=== PATIENT | male | born 1960 | race Caucasian/White ===

== ENCOUNTER 2018-02-15 03:46 | Emergency (ER) | payer BC, OTHER ==
[2018-02-15] MEDS ORDERED: ONDANSETRON 4 MG/2 ML VIAL ONE ×2 (04:21→06:22)
[2018-02-15] MEDS ORDERED: MORPHINE 4 MG/ML SYR ONE (04:21)
[2018-02-15] MEDS ORDERED: NA CHLORIDE 0.9% 1,000 ML ONE (04:21)
[2018-02-15 04:30] LABS: Absolute Lymphocytes (CBC) 3.1 K/uL (0.7-4.9); Absolute Monocytes 0.8 K/uL (0.1-1.3); Absolute Neutrophil 6.4 K/uL (1.8-8.0); Basophils % 0.9 % (0-1.3); Eosinophils % 6.1 % (0-4.4); Hematocrit 45.2 % (39.6-49.0); MCH 29.8 pg (27.0-35.0); MCV 88.3 fL (80-100); MPV 8.7 fL (7.6-11.3); Monocytes % 7.5 % (3.3-12.3); RBC Red Blood Cell Count 5.12 M/uL (4.33-5.43)
[2018-02-15] MEDS ORDERED: MEPERIDINE HCL 50 MG/ML AMP ONE ×2 (04:49→06:22)
[2018-02-15 04:51] LABS: Potassium 3.3 mEq/L (3.6-5.0)
[2018-02-15 04:58] LABS: Albumin 3.8 g/dL (3.2-5.5); Bilirubin Direct 0.1 mg/dL (0-0.2); Bilirubin Total 0.5 mg/dL (0.3-1.2); Protein, Total 7.6 g/dL (6.0-8.3)
[2018-02-15 05:05] LABS: Urine Blood 3+ (NEG); Urine Glucose NEGATIVE (NEG); Urine Protein NEGATIVE (NEG)
[2018-02-15] MEDS ORDERED: MAGNESIUM SULFATE 1 gm IVPB 1 GM/100 ML BAG IV ONE (05:14)
[2018-02-15] MEDS ORDERED: TAMSULOSIN 0.4 MG SR CAP ONE (05:14)
[2018-02-15 05:28] LABS: Urine Bacteria <20 /HPF (NONE SEEN); Urine Culture Reflex Order NOT NEEDED; Urine Mucus LIGHT /HPF (NONE SEEN)
[2018-02-15] MEDS ORDERED: KETOROLAC 30 MG/ML INJ ONE (07:04)
--- NOTE | 2018-02-15 08:52 | ER ---
Nurse's Notes [facility] Name: Kee Hernandez Age: 57 yrs Sex: Male : 1960 Arrival Date: 02/15/2018 Time: 03:47 Bed 8 Private MD: Ubaldo Shirley B Diagnosis: Kidney stones Presentation: 02/15 03:58 Presenting complaint: Patient states: I have a sharp pain in my kidneys, more on the tl2 right side and I have a pressure in my lower abdomen. Pt denies pain when urinating but states he can only urinate a small amount each time. Positive for N/V. Transition of care: patient was not received from another setting of care. Onset of symptoms was February 15, 2018 at 03:00. Risk Assessment: Do you want to hurt yourself or someone else? Patient reports no desire to harm self or others. Initial Sepsis Screen: Does the patient meet any 2 criteria? No. Patient's initial sepsis screen is negative. Does the patient have a suspected source of infection? No. Patient's initial sepsis screen is negative. Care prior to arrival: None. 03:58 Method Of Arrival: Ambulatory tl2 03:58 Acuity: MARU 3 tl2 Triage Assessment: 04:00 General: Appears in no apparent distress. uncomfortable, Behavior is calm, cooperative, tl2 appropriate for age. Pain: Complains of pain in right flank, suprapubic area Pain currently is 10 out of 10 on a pain scale. Quality of pain is described as pressure, sharp. Neuro: Level of Consciousness is awake, alert, obeys commands, Oriented to person, place, time, situation. Cardiovascular: Denies chest pain. Respiratory: Airway is patent Respiratory effort is even, unlabored, Respiratory pattern is regular, symmetrical. GI: Reports nausea, vomiting. : Reports inability to void, pain in right in suprapubic area flank(s), since 0300. Derm: Skin is pink, warm \\T\\ dry. Historical: - Allergies: 04:00 No Known Allergies; tl2 - Home Meds: 04:00 losartan 50 mg Oral tab [Active]; pravastatin 40 mg Oral tab 1 tab once daily [Active]; tl2 - PMHx: 04:00 Hypertension; High Cholesterol; tl2 - PSHx: 04:00 Cholecystectomy; tl2 - Immunization history:: Adult Immunizations up to date. - Social history:: Smoking status: Patient/guardian denies using tobacco. - Ebola Screening: : No symptoms or risks identified at this time. - Family history:: not pertinent. - Hospitalizations: : No recent hospitalization is reported. Screenin:06 Abuse screen: Denies threats or abuse. Nutritional screening: No deficits noted. tl2 Tuberculosis screening: No symptoms or risk factors identified. Fall Risk None identified. Assessment: 04:00 General: see triage assessment. tl2 04:00 Reassessment: pt continuing to c/o MD swathi notified, new order see NOV. tl2 05:00 Reassessment: Patient appears in no apparent distress at this time. Patient and/or tl2 family updated on plan of care and expected duration. Pain level reassessed. Patient is alert, oriented x 3, equal unlabored respirations, skin warm/dry/pink. Pt states pain has decreased some but is still bothering him. 06:30 Reassessment: Patient appears in no apparent distress at this time. Patient and/or tl2 family updated on plan of care and expected duration. Pain level reassessed. Patient is alert, oriented x 3, equal unlabored respirations, skin warm/dry/pink. Pt c/o MD swathi at bedside, new orders see NOV. 06:43 Reassessment: Pt resting comfortably after demerol administration. tl2 07:00 Reassessment: Pt resting with eyes closed, respirations even and unlabored, skin is aa5 pink/warm/dry. Pt awakened to verbal stimuli. Pt states "the pain is a little better". Pt rates pain a 8 out of 10 on a pain scale. . 07:00 Reassessment: Patient and/or family updated on plan of care and expected duration. Pain aa5 level reassessed. 07:01 Reassessment: Dr. Sneed at bedside . aa5 07:56 Reassessment: Ambulated pt approximately 250 feet, steady gate, pt states "I feel a jl7 little groggy but I'm ok.". 08:50 Reassessment: Patient is alert, oriented x 3, equal unlabored respirations, skin aa5 warm/dry/pink. Patient states feeling better. Vital Signs: 04:00 BP 167 / 108; Pulse 64; Resp 20; Temp 98.8(O); Pulse Ox 95% on R/A; Weight 140.61 kg; tl2 Height 5 ft. 11 in. (180.34 cm); Pain 10/10; 04:52 BP 178 / 115; Pulse 75; Resp 20; Pulse Ox 100% on R/A; tl2 06:40 BP 176 / 117; Pulse 66; Resp 20; Pulse Ox 95% on R/A; tl2 07:00 BP 182 / 98; Pulse 58; Resp 16 S; Pulse Ox 96% on R/A; Pain 8/10; aa5 07:05 Pulse Ox 86% on R/A; aa5 07:07 Pulse Ox 98% on 4 lpm NC; aa5 07:56 BP 142 / 86; Pulse 70; Resp 16 S; Pulse Ox 99% on R/A; Pain 1/10; jl7 08:50 BP 134 / 75; Pulse 65; Resp 16 S; Pulse Ox 97% on R/A; Pain 5/10; aa5 04:00 Body Mass Index 43.24 (140.61 kg, 180.34 cm) tl2 07:05 Pt's O2 sat decreases when pt is sleeping and increases to 96% when awake. Provider aa5 notified. ED Course: 03:47 Patient arrived in ED. ds1 03:47 Ubaldo Shirley MD is Private Physician. ds1 03:53 Dipak Sneed MD is Attending Physician. rn 03:58 Isaura Almanzar RN is Primary Nurse. tl2 03:59 Triage completed. tl2 04:00 Arm band placed on right wrist. tl2 04:06 Patient has correct armband on for positive identification. Bed in low position. Call tl2 light in reach. Side rails up X 1. Adult w/ patient. 04:15 Inserted saline lock: 20 gauge in right antecubital area, using aseptic technique. tl2 Blood collected. 04:40 CT completed. Patient moved to CT via wheelchair. Patient moved back from CT. cw1 04:41 CT Stone Protocol In Process Unspecified. EDMS 07:00 Report received from CARLY Delarosa. aa5 07:19 Attending Physician role handed off by Dipak Sneed MD kdr 07:19 Byron Guzman MD is Attending Physician. kdr 08:50 Byron Guzman MD is Referral Physician. kdr 08:50 No provider procedures requiring assistance completed. aa5 08:50 IV discontinued, intact, bleeding controlled, No redness/swelling at site. Pressure aa5 dressing applied. Administered Medications: 04:25 Drug: Zofran 4 mg Route: IVP; Site: right antecubital; tl2 05:20 Follow up: Response: No adverse reaction tl2 04:25 Drug: morphine 4 mg Route: IVP; Site: right antecubital; tl2 04:30 Follow up: Response: No adverse reaction; Pain is unchanged, physician notified tl2 04:26 Drug: NS 0.9% 1000 ml Route: IV; Rate: 1000 ml; Site: right antecubital; tl2 04:50 Drug: Demerol 50 mg Route: IVP; Site: right antecubital; tl2 05:10 Follow up: Response: No adverse reaction; Pain is decreased tl2 05:20 Drug: Flomax 0.4 mg Route: PO; tl2 06:31 Follow up: Response: No adverse reaction tl2 05:20 Drug: Magnesium Sulfate 1 grams Route: IVPB; Infused Over: 1 hrs; Site: right tl2 antecubital; 06:31 Follow up: IV Status: Completed infusion tl2 06:31 Drug: Demerol 50 mg Route: IVP; Site: right antecubital; tl2 07:00 Follow up: Response: No adverse reaction; Pain is decreased aa5 06:31 Drug: Zofran 2 mg Route: IVP; Site: right antecubital; tl2 07:00 Follow up: Response: No adverse reaction aa5 07:05 Drug: TORadol 30 mg Route: IVP; Site: right antecubital; aa5 07:30 Follow up: Response: No adverse reaction; Pain is decreased aa5 Output: 07:14 Urine: 400ml (Voided); Total: 400ml. aa5 Outcome: 08:51 Discharge ordered by . kdr 09:00 Discharged to home ambulatory, with family. aa5 09:00 Condition: improved 09:00 Discharge instructions given to patient, Instructed on discharge instructions, follow up and referral plans. medication usage, Demonstrated understanding of instructions, follow-up care, medications, Prescriptions given X 4. 09:06 Patient left the ED. aa5 Signatures: Dispatcher [employer] EDKY Byron Guzman MD MD kdr Sanford, Demi ds1 Dipak Sneed MD MD rn Calderon, Audri RN RN aa5 Emmie Rosado cw1 Isaura Almanzar RN RN tl2 Jcarlos Shearer RN RN jl7 Corrections: (The following items were deleted from the chart) 04:52 04:51 General: see triage assessment. tl2 tl2 04:59 04:52 Pulse 75bpm; Resp 20bpm; Pulse Ox 100% RA; tl2 tl2 09:07 07:05 Pulse Ox 86% RA; Pt's O2 sat decreases when pt is sleeping and increases to 96% aa5 when awake. ; aa5
--- NOTE | 2018-02-15 08:52 | EDPHYS ---
Physician Documentation [facility] Name: Kee Hernandez Age: 57 yrs Sex: Male : 1960 Arrival Date: 02/15/2018 Time: 03:47 Bed 8 Private MD: Ubaldo Shirley B ED Physician Byron Guzman HPI: 02/15 06:42 This 57 yrs old Male presents to ER via Ambulatory with complaints of Low rn Back Pain, Nausea/Vomiting. 06:42 The patient presents with pain that is acute. The symptoms are located in the low back. rn The pain radiates to the abdomen. Onset: The symptoms/episode began/occurred just prior to arrival. Severity of symptoms: At their worst the symptoms were severe, in the emergency department the symptoms are unchanged. The patient has not experienced similar symptoms in the past. The patient has not recently seen a physician. Historical: - Allergies: 04:00 No Known Allergies; tl2 - Home Meds: 04:00 losartan 50 mg Oral tab [Active]; pravastatin 40 mg Oral tab 1 tab once daily [Active]; tl2 - PMHx: 04:00 Hypertension; High Cholesterol; tl2 - PSHx: 04:00 Cholecystectomy; tl2 - Immunization history:: Adult Immunizations up to date. - Social history:: Smoking status: Patient/guardian denies using tobacco. - Ebola Screening: : No symptoms or risks identified at this time. - Family history:: not pertinent. - Hospitalizations: : No recent hospitalization is reported. ROS: 06:42 Constitutional: Negative for fever, chills, and weight loss, Eyes: Negative for injury, rn pain, redness, and discharge, Cardiovascular: Negative for chest pain, palpitations, and edema, Respiratory: Negative for shortness of breath, cough, wheezing, and pleuritic chest pain, Abdomen/GI: Negative for diarrhea, and constipation Back: Negative for injury MS/Extremity: Negative for injury and deformity, Skin: Negative for injury, rash, and discoloration, Neuro: Negative for headache, weakness, numbness, tingling, and seizure. Exam: 06:42 Constitutional: This is a well developed, well nourished patient who is awake, alert, rn appears uncomfortable Head/Face: Normocephalic, atraumatic. Abdomen/GI: Soft, non-tender, with normal bowel sounds. No distension or tympany. No guarding or rebound. No evidence of tenderness throughout. Back: No spinal tenderness. No costovertebral tenderness. Full range of motion. MS/ Extremity: Pulses equal, no cyanosis. Neurovascular intact. Full, normal range of motion. Equal circumference. Neuro: Awake and alert, GCS 15, oriented to person, place, time, and situation. Cranial nerves II-XII grossly intact. Motor strength 5/5 in all extremities. Sensory grossly intact. Vital Signs: 04:00 BP 167 / 108; Pulse 64; Resp 20; Temp 98.8(O); Pulse Ox 95% on R/A; Weight 140.61 kg; tl2 Height 5 ft. 11 in. (180.34 cm); Pain 10/10; 04:52 BP 178 / 115; Pulse 75; Resp 20; Pulse Ox 100% on R/A; tl2 06:40 BP 176 / 117; Pulse 66; Resp 20; Pulse Ox 95% on R/A; tl2 07:00 BP 182 / 98; Pulse 58; Resp 16 S; Pulse Ox 96% on R/A; Pain 8/10; aa5 07:05 Pulse Ox 86% on R/A; aa5 07:07 Pulse Ox 98% on 4 lpm NC; aa5 07:56 BP 142 / 86; Pulse 70; Resp 16 S; Pulse Ox 99% on R/A; Pain 1/10; jl7 08:50 BP 134 / 75; Pulse 65; Resp 16 S; Pulse Ox 97% on R/A; Pain 5/10; aa5 04:00 Body Mass Index 43.24 (140.61 kg, 180.34 cm) tl2 07:05 Pt's O2 sat decreases when pt is sleeping and increases to 96% when awake. Provider aa5 notified. MDM: 03:53 Patient medically screened. rn 16:58 Data reviewed: vital signs, nurses notes, lab test result(s), radiologic studies. kdr Counseling: I had a detailed discussion with the patient and/or guardian regarding: the historical points, exam findings, and any diagnostic results supporting the discharge/admit diagnosis, lab results, radiology results, the need for outpatient follow up. 02/15 04:13 Order name: Basic Metabolic Panel; Complete Time: 04:59 rn 02/15 04:13 Order name: CBC with Diff; Complete Time: 04:59 rn 02/15 04:13 Order name: Creatinine for Radiology; Complete Time: 04:59 rn 02/15 04:13 Order name: Hepatic Function; Complete Time: 04:59 rn 02/15 04:13 Order name: Lipase; Complete Time: 04:59 rn 02/15 04:13 Order name: Urine Microscopic Only; Complete Time: 06:17 rn 02/15 04:13 Order name: CT Stone Protocol; Complete Time: 09:03 rn 02/15 04:53 Order name: Urine Dipstick--Ancillary (enter results); Complete Time: 06:17 eb 02/15 04:13 Order name: IV Saline Lock; Complete Time: 04:18 rn 02/15 04:13 Order name: Labs collected and sent; Complete Time: 04:18 rn 02/15 04:13 Order name: Urine Dipstick-Ancillary (obtain specimen); Complete Time: 04:18 rn Administered Medications: 04:25 Drug: Zofran 4 mg Route: IVP; Site: right antecubital; tl2 05:20 Follow up: Response: No adverse reaction tl2 04:25 Drug: morphine 4 mg Route: IVP; Site: right antecubital; tl2 04:30 Follow up: Response: No adverse reaction; Pain is unchanged, physician notified tl2 04:26 Drug: NS 0.9% 1000 ml Route: IV; Rate: 1000 ml; Site: right antecubital; tl2 04:50 Drug: Demerol 50 mg Route: IVP; Site: right antecubital; tl2 05:10 Follow up: Response: No adverse reaction; Pain is decreased tl2 05:20 Drug: Flomax 0.4 mg Route: PO; tl2 06:31 Follow up: Response: No adverse reaction tl2 05:20 Drug: Magnesium Sulfate 1 grams Route: IVPB; Infused Over: 1 hrs; Site: right tl2 antecubital; 06:31 Follow up: IV Status: Completed infusion tl2 06:31 Drug: Demerol 50 mg Route: IVP; Site: right antecubital; tl2 07:00 Follow up: Response: No adverse reaction; Pain is decreased aa5 06:31 Drug: Zofran 2 mg Route: IVP; Site: right antecubital; tl2 07:00 Follow up: Response: No adverse reaction aa5 07:05 Drug: TORadol 30 mg Route: IVP; Site: right antecubital; aa5 07:30 Follow up: Response: No adverse reaction; Pain is decreased aa5 Disposition: 02/15/18 08:51 Discharged to Home. Impression: Kidney stones. - Condition is Stable. - Discharge Instructions: Kidney Stones, [id number]. - Prescriptions for Tylenol- Codeine #3 300-30 mg Oral Tablet - take 2 tablets by ORAL route every 6 hours As needed; 12 tablet. Zofran 4 mg Oral Tablet - take 1 tablet by ORAL route every 12 hours As needed; 6 tablet. Flomax 0.4 mg Oral Capsule, Sust. Release 24 hr - take 1 capsule by ORAL route once daily 1/2 hour following the same meal each day; 15 capsule. Bactrim DS 800- 160 mg Oral Tablet - take 1 tablet by ORAL route every 12 hours for 3 days; 6 tablet. - Medication Reconciliation Form, Thank You Letter, Prescription Opioid Use form. - Follow up: Byron Guzman MD; When: 2 - 3 days; Reason: If symptoms return, Further diagnostic work-up, Recheck today's complaints, Continuance of care, Re-evaluation by your physician. - Problem is new. - Symptoms have improved. Signatures: Dispatcher [employer] EDMS Byron Guzman MD MD kdr Dipak Sneed MD MD rn Calderon, Audri, RN RN aa5 Isaura Almanzar RN RN tl2 Corrections: (The following items were deleted from the chart) 09:06 08:51 02/15/2018 08:51 Discharged to Home. Impression: Kidney stones. Condition is aa5 Stable. Forms are Medication Reconciliation Form, Thank You Letter, Antibiotic Education, Prescription Opioid Use. Follow up: Dr. Byron Guzman; When: 2 - 3 days; Reason: If symptoms return, Further diagnostic work-up, Recheck today's complaints, Continuance of care, Re-evaluation by your physician. Problem is new. Symptoms have improved. kdr
--- NOTE | 2018-02-15 08:56 | RAD REPORT ---
EXAM DESCRIPTION: CT - Stone Protocol - 02/15/2018 6:18 am CLINICAL HISTORY: Abdominal pain. Right flank pain COMPARISON: None. TECHNIQUE: Computed axial tomography of the abdomen pelvis was obtained without oral or IV contrast. Lack of IV and oral contrast limits evaluation of solid organs, bowel, and vessels. Coronal reformat gordon images were obtained and reviewed. A preliminary report was generated by [employer] and reviewed prior to this dictation All CT scans are performed using dose optimization technique as appropriate and may include automated exposure control or mA/KV adjustment according to patient size. FINDINGS: Punctate right renal calculus is present. Mild right hydronephrosis is seen. 2 millimeter calculus is present within the distal right ureter. A left renal calculus is not seen. The liver, spleen, pancreas and adrenals appear grossly normal There is no evidence of diverticulitis. The appendix appears normal Bilateral inguinal hernias contain fat IMPRESSION: 2 millimeter calculus within the distal right ureter resulting in mild right hydronephro sis
[2018-02-15 09:11] VITALS: TEMP 98.8
[2018-02-15 09:19] VITALS: BP 134/75; O2SAT 97
== END 2018-02-15 09:06 | disposition home or self-care (01) ==
LOC: ER 03:46
DX: N20.0 Calculus of kidney (principal); I10 Essential (primary) hypertension; E78.00 Pure hypercholesterolemia, unspecified
CPT/HCPCS: 36415; 74176; 76377; 80048; 80076; 81003; 81015; 83690; 85025; 96365; 96375; 99284; J2175; J2405; J3475; J7030

== ENCOUNTER 2019-02-03 23:18 | Observation (INO) | payer OTHER ==
[2019-02-03 23:53] LABS: Absolute Lymphocytes (CBC) 2.4 K/uL (0.7-4.9); Absolute Monocytes 0.7 K/uL (0.1-1.3); Absolute Neutrophil 5.9 K/uL (1.8-8.0); Basophils % 0.6 % (0-1.3); Eosinophils % 3.3 % (0-4.4); Hematocrit 45.2 % (39.6-49.0); Lymphocytes % 25.3 % (15.3-44.8); MPV 8.4 fL (7.6-11.3); Monocytes % 7.9 % (3.3-12.3); RBC Red Blood Cell Count 5.03 M/uL (4.33-5.43)
[2019-02-03 23:56] LABS: Protime INR 0.98
[2019-02-04] MEDS ORDERED: ASPIRIN 81 MG CHEWABLE TABLET ONE (00:15)
[2019-02-04 00:17] LABS: ALT/SGPT 30 U/L (12-78); AST/SGOT 20 U/L (15-37); Albumin 3.5 g/dL (3.4-5.0); Alkaline Phosphatase 98 U/L (45-117); BUN Blood Urea Nitrogen 16 mg/dL (7-18); Bicarbonate 25 mmol/L (21-32); Bilirubin Direct 0.1 mg/dL (0-0.2); Bilirubin Total 0.4 mg/dL (0.2-1.0); Glucose Level 101 mg/dL (74-106); Magnesium 2.4 mg/dL (1.8-2.4); NT PRO-BNP 53 pg/mL (<125); Potassium 3.7 mmol/L (3.5-5.1); Protein, Total 7.8 g/dL (6.4-8.2); Sodium Level 142 mmol/L (136-145); Troponin (Emerg Dept Use Only) < 0.02 ng/mL (0.0-0.045)
--- NOTE | 2019-02-04 03:53 | EDPHYS ---
Physician Documentation [facility] Name: Kee Hernandez Age: 58 yrs Sex: Male : 1960 Arrival Date: 02/03/2019 Time: 23:23 Bed 18 Private MD: Ubaldo Shirley B ED Physician [place] Estrada HPI: 02/04 02:12 This 58 yrs old Male presents to ER via Wheelchair with complaints of Chest tw4 Pain. 02:12 The patient or guardian reports chest pain that is located primarily in the anterior tw4 chest wall, left. Onset: this morning, today. The pain does not radiate. Associated signs and symptoms: The patient has no apparent associated signs or symptoms. The chest pain is described as a heaviness. Duration: The patient or guardian reports a single episode. Modifying factors: The symptoms are alleviated by nothing. the symptoms are aggravated by nothing. Severity of pain: At its worst the pain was moderate in the emergency department the pain is unchanged. The patient has not experienced similar symptoms in the past. Historical: - Allergies: 02/03 23:34 No Known Allergies; jb4 - Home Meds: 23:34 losartan 50 mg Oral tab [Active]; pravastatin 40 mg Oral tab 1 tab once daily [Active]; jb4 - PMHx: 23:34 High Cholesterol; Hypertension; jb4 - PSHx: 23:34 Cholecystectomy; abdominal; jb4 - Immunization history:: Adult Immunizations up to date. - Social history:: Smoking status: Patient/guardian denies using tobacco, Patient/guardian denies using alcohol. - Ebola Screening: : No symptoms or risks identified at this time. ROS: 02/04 02:12 Constitutional: Negative for fever, chills, and weight loss, Respiratory: Negative for tw4 shortness of breath, cough, wheezing, and pleuritic chest pain, Abdomen/GI: Negative for abdominal pain, nausea, vomiting, diarrhea, and constipation, Back: Negative for injury and pain, MS/Extremity: Negative for injury and deformity, Skin: Negative for injury, rash, and discoloration, Neuro: Negative for headache, weakness, numbness, tingling, and seizure. Cardiovascular: Positive for chest pain, Negative for edema, orthopnea, palpitations, paroxysmal nocturnal dyspnea. Exam: 02:12 Constitutional: This is a well developed, well nourished patient who is awake, alert, tw4 and in no acute distress. Head/Face: Normocephalic, atraumatic. Chest/axilla: Normal chest wall appearance and motion. Nontender with no deformity. No lesions are appreciated. Cardiovascular: Regular rate and rhythm with a normal S1 and S2. No gallops, murmurs, or rubs. Normal PMI, no JVD. No pulse deficits. Respiratory: Lungs have equal breath sounds bilaterally, clear to auscultation and percussion. No rales, rhonchi or wheezes noted. No increased work of breathing, no retractions or nasal flaring. Abdomen/GI: Soft, non-tender, with normal bowel sounds. No distension or tympany. No guarding or rebound. No evidence of tenderness throughout. MS/ Extremity: Pulses equal, no cyanosis. Neurovascular intact. Full, normal range of motion. Neuro: Awake and alert, GCS 15, oriented to person, place, time, and situation. Cranial nerves II-XII grossly intact. Motor strength 5/5 in all extremities. Sensory grossly intact. Cerebellar exam normal. Normal gait. Vital Signs: 02/03 23:34 BP 154 / 94; Pulse 80; Resp 16; Temp 98.3(O); Pulse Ox 98% on R/A; Weight 145.15 kg jb4 (R); Height 5 ft. 11 in. (180.34 cm) (R); Pain 10; 02/04 00:30 BP 134 / 81; Pulse 74; Resp 16; Pulse Ox 98% on R/A; jb4 01:30 BP 131 / 85; Pulse 67; Resp 16; Pulse Ox 97% on R/A; jb4 02:45 BP 125 / 84; Pulse 62; Resp 16; Pulse Ox 100% on R/A; jb4 03:45 BP 129 / 82; Pulse 63; Resp 16; Pulse Ox 100% on R/A; jb4 04:30 BP 131 / 79; Pulse 60; Resp 18; Pulse Ox 98% on R/A; jb4 05:30 BP 118 / 83; Pulse 66; Resp 20; Temp 98.1(O); Pulse Ox 98% on R/A; jb4 06:18 BP 126 / 88; Pulse 60; Resp 16; Pulse Ox 99% on R/A; 4 02/03 23:34 Body Mass Index 44.63 (145.15 kg, 180.34 cm) 4 MDM: 02/03 23:37 Patient medically screened. 02/04 05:43 Differential diagnosis: abnormal EKG, acute myocardial infarction, coronary artery tw4 disease chest wall pain, cholecystitis, Cholelithiasis pulmonary embolus, thoracic aortic disection. HEART Score: History: Moderately Suspicious (1), ECG: Normal (0), Age: > 45 and < 65 years (1), Risk Factors: 1 or 2 risk factors (1), Troponin: < or = 1 x Normal Limit (0). Data reviewed: vital signs, nurses notes. Data interpreted: Pulse oximetry: Interpretation: normal. Counseling: I had a detailed discussion with the patient and/or guardian regarding: the historical points, exam findings, and any diagnostic results supporting the discharge/admit diagnosis. Medication response: Nitro x 3 partially relieved pain. Response to treatment: the patient's symptoms have markedly improved after treatment, and as a result, I will admit patient. Physician consultation: Kristen Ruasch MD regarding admission, and will see patient in ED. 02/03 23:39 Order name: Basic Metabolic Panel [facility] 02/03 23:39 Order name: CBC with Diff 02/03 23:39 Order name: LFT's 02/03 23:39 Order name: Magnesium [facility] 02/03 23:39 Order name: NT PRO-BNP [facility] 02/03 23:39 Order name: PT-INR; Complete Time: 00:37 [facility] 02/04 00:37 Interpretation: Within normal limits: PT 11.6. 02/03 23:39 Order name: Troponin (emerg Dept Use Only) 02/03 23:39 Order name: XRAY Chest (1 view) 02/03 23:40 Order name: Basic Metabolic Panel; Complete Time: 00:37 EDLA 02/04 00:37 Interpretation: Normal except: CL 109; GFR 85. [facility] 02/03 23:40 Order name: CBC with Automated Diff; Complete Time: 00:36 EDMS 02/04 00:37 Interpretation: Normal except: RDW 15.3. tw02/03 23:40 Order name: Liver (Hepatic) Function EDLA 02/04 00:38 Order name: CT Chest For PE Angio 4 02/04 02:25 Order name: Troponin (emerg Dept Use Only) [facility] 02/03 23:39 Order name: EKG; Complete Time: 23:41 4 02/03 23:39 Order name: Cardiac monitoring; Complete Time: 23:40 4 02/03 23:39 Order name: EKG - Nurse/Tech; Complete Time: 23:40 4 02/03 23:39 Order name: IV Saline Lock; Complete Time: 23:40 4 02/03 23:39 Order name: Labs collected and sent; Complete Time: 23:57 4 02/03 23:39 Order name: O2 Per Protocol; Complete Time: 23:40 4 02/03 23:39 Order name: O2 Sat Monitoring; Complete Time: 23:40 tw4 Administered Medications: 00:00 Drug: Aspirin 81 mg Route: PO; jb4 00:30 Follow up: Response: No adverse reaction jb4 03:59 Drug: Nitro-Bid Ointment 2 % 0.5 inches Route: Transdermal; Site: anterior chest wall; jb4 04:12 Follow up: Response: No adverse reaction; Pain is decreased jb4 05:29 Not Given (Patient Refused): morphine 2 mg IVP once jb4 05:30 Not Given (Patient Refused): Zofran 4 mg IVP once; over 2 minutes jb4 Disposition: 02/04/19 03:52 Hospitalization ordered by Kristen Rausch for Observation. Preliminary diagnosis is Chest pain, unspecified. - Bed requested for Telemetry/MedSurg (observation). - Status is Observation. jb4 - Condition is Stable. - Problem is new. - Symptoms have improved. UTI on Admission? No Signatures: Dispatcher [employer] EDLA Neyda Sinha RN RN cg Daniel Islas RN RN jb4 Montana Estrada MD MD tw4 Corrections: (The following items were deleted from the chart) 05:04 03:52 Hospitalization Ordered by Kristen Rausch MD for Observation. Preliminary cg diagnosis is Chest pain, unspecified. Bed requested for Telemetry/MedSurg (observation). Status is Observation. Condition is Stable. Problem is new. Symptoms have improved. UTI on Admission? No. tw4 06:51 05:04 02/04/2019 03:52 Hospitalization Ordered by Kristen Rausch MD for Observation. jb4 Preliminary diagnosis is Chest pain, unspecified. Bed requested for Telemetry/MedSurg (observation). Status is Observation. Condition is Stable. Problem is new. Symptoms have improved. UTI on Admission? No. cg
--- NOTE | 2019-02-04 03:53 | ER ---
Nurse's Notes [facility] Name: Kee Hernandez Age: 58 yrs Sex: Male : 1960 Arrival Date: 02/03/2019 Time: 23:23 Bed 18 Private MD: Ubaldo Shirley B Diagnosis: Chest pain, unspecified Presentation: 02/03 23:34 Presenting complaint: Patient states: This morning I stretched my arms and I felt a jb4 sharp pain that radiated from my back to my mid upper chest. The back pain went away but the chest pain is still there. 23:34 Transition of care: patient was not received from another setting of care. Onset of jb4 symptoms was February 03, 2019. Risk Assessment: Do you want to hurt yourself or someone else? Patient reports no desire to harm self or others. Initial Sepsis Screen: Does the patient meet any 2 criteria? No. Patient's initial sepsis screen is negative. Does the patient have a suspected source of infection? No. Patient's initial sepsis screen is negative. Care prior to arrival: None. 23:34 Method Of Arrival: Wheelchair jb4 23:34 Acuity: MARU 3 jb4 Historical: - Allergies: 23:34 No Known Allergies; jb4 - Home Meds: 23:34 losartan 50 mg Oral tab [Active]; pravastatin 40 mg Oral tab 1 tab once daily [Active]; jb4 - PMHx: 23:34 High Cholesterol; Hypertension; jb4 - PSHx: 23:34 Cholecystectomy; abdominal; jb4 - Immunization history:: Adult Immunizations up to date. - Social history:: Smoking status: Patient/guardian denies using tobacco, Patient/guardian denies using alcohol. - Ebola Screening: : No symptoms or risks identified at this time. Screenin:34 Abuse screen: Denies threats or abuse. Nutritional screening: No deficits noted. jb4 Tuberculosis screening: No symptoms or risk factors identified. Fall Risk IV access (20 points). Gait- Normal/Bed Rest/Wheelchair (0 pts) Mental Status- Oriented to own ability (0 pts). Total Regalado Fall Scale indicates No Risk (0-24 pts). Assessment: 23:34 General: Appears in no apparent distress. comfortable, Behavior is calm, cooperative, jb4 appropriate for age. Pain: Complains of pain in mid-sternal area Pain does not radiate. Pain currently is 4 out of 10 on a pain scale. Quality of pain is described as Being soar Pain began This morning. Neuro: Level of Consciousness is awake, alert, obeys commands, Oriented to person, place, time, situation. Cardiovascular: Patient's skin is warm and dry. Rhythm is sinus rhythm. Respiratory: Airway is patent Respiratory effort is even, unlabored, Respiratory pattern is regular, symmetrical, Denies shortness of breath labored breathing. GI: No signs and/or symptoms were reported involving the gastrointestinal system. : No signs and/or symptoms were reported regarding the genitourinary system. EENT: No signs and/or symptoms were reported regarding the EENT system. Derm: Skin is intact, Skin is pink, warm \T\ dry. Musculoskeletal: Circulation, motion, and sensation intact. Range of motion: intact in all extremities. 02/04 00:30 Reassessment: Patient appears in no apparent distress at this time. Patient and/or jb4 family updated on plan of care and expected duration. Pain level reassessed. Patient is alert, oriented x 3, equal unlabored respirations, skin warm/dry/pink. 01:30 Reassessment: Patient appears in no apparent distress at this time. Patient and/or jb4 family updated on plan of care and expected duration. Pain level reassessed. Patient is alert, oriented x 3, equal unlabored respirations, skin warm/dry/pink. PT refused pain medication at this time. 02:55 Reassessment: Patient appears in no apparent distress at this time. Patient and/or jb4 family updated on plan of care and expected duration. Pain level reassessed. Pt is resting with eyes closed, respirations are even and unlabored. is at the bedside. 03:45 Reassessment: PT reports chest pain has not gotten worse but has not gotten any better. jb4 pt refuses morphine. provider notified see [facility] for orders. 04:00 Reassessment: Patient appears in no apparent distress at this time. Patient and/or jb4 family updated on plan of care and expected duration. Pain level reassessed. Patient is alert, oriented x 3, equal unlabored respirations, skin warm/dry/pink. 04:05 Reassessment: Pt reports decrease in pain after nitro application. provider notified. jb4 05:34 Reassessment: Patient appears in no apparent distress at this time. Patient and/or jb4 family updated on plan of care and expected duration. Pain level reassessed. Patient is alert, oriented x 3, equal unlabored respirations, skin warm/dry/pink. Patient states feeling better. 06:25 Reassessment: Patient appears in no apparent distress at this time. Patient and/or jb4 family updated on plan of care and expected duration. Pain level reassessed. Patient is alert, oriented x 3, equal unlabored respirations, skin warm/dry/pink. PT taken upstairs via wheelchair with tech. Vital Signs: 02/03 23:34 BP 154 / 94; Pulse 80; Resp 16; Temp 98.3(O); Pulse Ox 98% on R/A; Weight 145.15 kg jb4 (R); Height 5 ft. 11 in. (180.34 cm) (R); Pain 12/27; 02/04 00:30 BP 134 / 81; Pulse 74; Resp 16; Pulse Ox 98% on R/A; jb4 01:30 BP 131 / 85; Pulse 67; Resp 16; Pulse Ox 97% on R/A; jb4 02:45 BP 125 / 84; Pulse 62; Resp 16; Pulse Ox 100% on R/A; jb4 03:45 BP 129 / 82; Pulse 63; Resp 16; Pulse Ox 100% on R/A; jb4 04:30 BP 131 / 79; Pulse 60; Resp 18; Pulse Ox 98% on R/A; jb4 05:30 BP 118 / 83; Pulse 66; Resp 20; Temp 98.1(O); Pulse Ox 98% on R/A; jb4 06:18 BP 126 / 88; Pulse 60; Resp 16; Pulse Ox 99% on R/A; jb4 02/03 23:34 Body Mass Index 44.63 (145.15 kg, 180.34 cm) [facility] ED Course: 02/03 23:23 Patient arrived in ED. es 23:24 Ubaldo Shirley MD is Private Physician. es 23:34 Arm band placed on right wrist. jb4 23:34 Patient has correct armband on for positive identification. Bed in low position. Call [facility] light in reach. Side rails up X 1. arc air operator on. Pulse ox on. NIBP on. 23:37 Montana Estrada MD is Attending Physician. tw4 23:39 Daniel Islas, CARLY is Primary Nurse. jb4 23:42 Triage completed. jb4 23:57 Liver (Hepatic) Function Sent. jb4 23:57 Basic Metabolic Panel Sent. jb4 23:57 PT-INR Sent. jb4 23:57 Troponin (emerg Dept Use Only) Sent. jb4 23:57 NT PRO-BNP Sent. jb4 23:57 Magnesium Sent. jb4 23:57 Initial lab(s) drawn, by ak, sent to lab. Inserted saline lock: 20 gauge in right jb4 antecubital area, using aseptic technique. Blood collected. Patient maintains SpO2 saturation greater than 95% on room air. 23:58 LFT's Sent. jb4 23:58 CBC with Diff Sent. jb4 23:58 Basic Metabolic Panel Sent. jb4 02/04 00:18 X-ray completed. Portable x-ray completed in exam room. Patient tolerated procedure kw well. 00:20 XRAY Chest (1 view) In Process Unspecified. EDMS 01:23 CT Chest For PE Angio In Process Unspecified. EDMS 02:35 IV is patent, is intact, with fluids infusing freely, with good blood return, Flushed jb4 right antecubital saline lock with 5 ml normal saline. 03:52 Kristen Rausch MD is Hospitalizing Provider. tw4 06:18 No provider procedures requiring assistance completed. Patient admitted, IV remains in jb4 place. Administered Medications: 00:00 Drug: Aspirin 81 mg Route: PO; jb4 00:30 Follow up: Response: No adverse reaction jb4 03:59 Drug: Nitro-Bid Ointment 2 % 0.5 inches Route: Transdermal; Site: anterior chest wall; jb4 04:12 Follow up: Response: No adverse reaction; Pain is decreased jb4 05:29 Not Given (Patient Refused): morphine 2 mg IVP once jb4 05:30 Not Given (Patient Refused): Zofran 4 mg IVP once; over 2 minutes jb4 Outcome: 03:52 Decision to Hospitalize by Provider. tw4 06:25 Admitted to [facility] accompanied by tech, via wheelchair, room 415, with chart, Report jb4 called to CARLY Awan 06:25 Condition: stable 06:25 Discharge instructions given to patient, family, Instructed on the need for admit, Demonstrated understanding of instructions. 06:51 Patient left the ED. jb4 Signatures: Dispatcher [employer] Laura Dubois Kimberlee kw Bryson, James, RN RN jb4 Montana Estrada MD MD tw4 Corrections: (The following items were deleted from the chart) 04:12 03:55 Reassessment: PT reports chest pain has not gotten worse but has not gotten any jb4 better. pt refuses morphine. provider notified see [facility] for orders. jb4
[2019-02-04] MEDS ORDERED: NITROGLYCERIN 1 GM PKT TD ONE (04:06)
--- NOTE | 2019-02-04 05:11 | P.HP ---
Certification for Inpatient Patient admitted to: Observation With expected LOS: <2 Midnights Practitioner: I am a practitioner with admitting privileges, knowledge of patient current condition, hospital course, and medical plan of care. Services: Services provided to patient in accordance with Admission requirements found in Title 42 Section 412.3 of the Code of Federal Regulations Patient History Date of Service: 02/04/19 Reason for admission: chest pain History of Present Illness: Mr Hernandez is a 58 years old male with history of obesity, dyslipidemia, HTN, who start with chest pain yesterday morning after stretching his arms. The pain was stubbing, 6/10 of intensity, radiated to his back. He denied nausea, vomiting, diaphoresis, SOB, palpitations or dizziness. At arrival still symptomatic. After nitro given, his back pain resolved, and chest pain decreased significantly. EKG without ST-T abnormalities, Trop I x 2 negative. He has never had this symptoms in the past. Allergies No Known Allergies Allergy (Unverified 06/17/12 09:07) Home medications list reviewed: Yes - Past Medical/Surgical History -: obesity -: HTN -: dislypidemia -: cholecystectomy - Family History Family History: Reviewed- Non-Contributory - Social History Smoking Status: Former smoker CD- Drugs: No Place of Residence: Home Review of Systems 10-point ROS is otherwise unremarkable Physical Examination - Physical Exam General: Alert, In no apparent distress HEENT: Atraumatic, PERRLA, Mucous membr. moist/pink, EOMI, Sclerae nonicteric Neck: Supple, 2+ carotid pulse no bruit, No LAD, Without JVD or thyroid abnormality Respiratory: Clear to auscultation bilaterally, Normal air movement Cardiovascular: Regular rate/rhythm, Normal S1 S2 Gastrointestinal: Normal bowel sounds, No tenderness Musculoskeletal: No tenderness Integumentary: No rashes Neurological: Normal speech, Normal strength at 5/5 x4 extr, Normal tone, Normal affect Lymphatics: No axilla or inguinal lymphadenopathy - Studies Laboratory Data (last 24 hrs) 02/03/19 23:32: PT 11.6, INR 0.98 02/03/19 23:32: WBC 9.4, Hgb 14.8, Hct 45.2, Plt Count 228 02/03/19 23:32: Sodium 142, Potassium 3.7, BUN 16, Creatinine 0.92, Glucose 101 , Magnesium 2.4, Total Bilirubin 0.4, AST 20, ALT 30, Alkaline Phosphatase 98 Assessment and Plan - Problems (Diagnosis) (1) Chest pain Current Visit: Yes Status: Acute Qualifiers: Chest pain type: unspecified Qualified Code(s): R07.9 - Chest pain, unspecified (2) HTN (hypertension) Current Visit: Yes Status: Acute Qualifiers: Hypertension type: essential hypertension Qualified Code(s): I10 - Essential (primary) hypertension (3) Obesity Current Visit: Yes Status: Acute Qualifiers: Obesity type: unspecified obesity type Obesity classification: unspecified obesity classification Serious obesity comorbidity presence: unspecified whether serious comorbidity present Qualified Code(s): E66.9 - Obesity, unspecified (4) Dyslipidemia Current Visit: Yes Status: Acute - Plan The patient will be admitted to the hospital due to chest pain, which is atypical per clinical presentation, however, it is remarkable that his symptoms improved after recive Nitro SL. Will continue evaluation Trop I, EKG, order ECHO , consult cardiology for evaluation and recommendations. - Advance Directives Does patient have a Living Will: No Does patient have a Durable POA for Healthcare: No - Code Status/Comfort Care Code Status Assessed: Yes Code Status: Full Code
--- NOTE | 2019-02-04 06:19 | EKG ---
Test Date: 2019-02-03 Test Time: 23:32:53 Parts Identifier: BRENDA MEASUREMENT RESULTS: Intervals: Rate: 77 VT: 144 QRSD: 88 QT: 382 QTc: 432 Keenes: P: 4 VT: 144 QRS: 9 T: -8 INTERPRETIVE STATEMENTS: Normal sinus rhythm Normal ECG Compared to ECG 03/12/2010 00:12:13 Short VT interval no longer present Electronically Signed On 02-04-19 06:18:32 CDT by Isaak Purcell
[2019-02-04] MEDS ORDERED: NITROGLYCERIN 0.4 MG/TAB SL PRN (06:30)
[2019-02-04 07:30] LABS: HDL Cholesterol 40 mg/dL (40-60); LDL Cholesterol, Calculated 62 (<130); Troponin I < 0.02 ng/mL (0.0-0.045)
[2019-02-04] MEDS ORDERED: ACETAMINOPHEN 325 MG TABLET PO PRN (07:50)
[2019-02-04 08:06] VITALS: BMI 44.6
[2019-02-04] MEDS: ENOXAPARIN 40 MG/0.4 ML SQ SCH (10:00)
[2019-02-04] MEDS: ASPIRIN EC 81 MG TAB PO SCH (10:00)
--- NOTE | 2019-02-04 11:59 | P.PN ---
Date of Service: 02/04/19 pt seen and examined no CP or sob but was complaining of headache mostly due to nitroglycerin tylenol given f/up cardiology recommendations
--- NOTE | 2019-02-04 12:47 | RAD REPORT ---
EXAM DESCRIPTION: RAD - Chest Single View - 02/04/2019 12:18 am CLINICAL HISTORY: CHEST PAIN Chest pain. COMPARISON: No comparisons FINDINGS: Portable technique limits examination quality. The lungs are grossly clear. The heart is mildly enlarged in size. No displaced fractures. IMPRESSION: No acute intrathoracic process suspected.
[2019-02-04 13:44] LABS: Urine Appearance CLEAR; Urine Bilirubin NEGATIVE (NEG); Urine Blood NEGATIVE (NEG); Urine Color YELLOW; Urine Glucose NEGATIVE (NEG); Urine Protein NEGATIVE (NEG); Urine Specific Gravity >=1.030 (1.005-1.030)
[2019-02-04 14:09] LABS: Urine Bacteria 20-50 /HPF (NONE SEEN); Urine Culture Reflex Order REFLEXED; Urine Mucus 1+ /HPF (NONE SEEN); Urine RBC <5 /HPF (NONE SEEN)
--- NOTE | 2019-02-04 16:11 | CON ---
History Of Present Illness: Mr. Giordano is 58. He woke up from sleep yesterday morning feeling fin e, then he stretched and then he had pain that felt like a muscle kink in his back. Shortly later, i t radiated to the front right at the anterior part of the sternum. There is no nausea, vomiting, swe ating, shortness of breath. It still is present. He has been in our hospital for several hours. He has normal enzymes, normal EKGs. He has underlying hypertension and dyslipidemia. Does not have di abetes. Never used tobacco. No previous history of myocardial infarction, stroke, or any other vasc ular disease. Allergies: HE HAS NO KNOWN ALLERGIES. Primary Care Physician: Chad Shirley. Outpatient Medications: Losartan 50 mg a day, Pravachol 40 mg a day. Physical Examination: General: On physical exam, he is alert, oriented, pleasant, not in distress; 5 feet 11, 320 pounds. Morbidly obese. HEENT: No carotid bruit. Lungs: Clear. Cardiac: Normal. Abdomen: Soft. Extremities: Normal. No cyanosis, clubbing, or edema. Distal pulses normal. His EKG is completely normal. Chest x-ray and thoracic CT angio have been done but not officially in terpreted. As far as it goes, I do not see any evidence of pneumonia or pulmonary embolism or aortic dissection, but we will await the radiologist's official report. I think the patient should have a stress test and echo. I suspect this is all musculoskeletal pain and not related to coronary heart disease. SOPHY/MARGOTH Voice ID: [id number] Report ID: [id number]
[2019-02-04 21:22] VITALS: O2SAT 97
[2019-02-05] MEDS ORDERED: REGADENOSON 0.4 MG/5 ML SYR IV ONE (08:38)
[2019-02-05] MEDS: ENOXAPARIN 40 MG/0.4 ML SQ SCH (09:00)
[2019-02-05] MEDS: ASPIRIN EC 81 MG TAB PO SCH (09:00)
--- NOTE | 2019-02-05 11:19 | P.SSS ---
Patient History Date of Service: 02/05/19 Reason for admission: chest pain History of Present Illness: Mr Hernandez is a 58 years old male with history of obesity, dyslipidemia, HTN, who start with chest pain yesterday morning after stretching his arms. The pain was stubbing, 6/10 of intensity, radiated to his back. He denied nausea, vomiting, diaphoresis, SOB, palpitations or dizziness. At arrival still symptomatic. After nitro given, his back pain resolved, and chest pain decreased significantly. EKG without ST-T abnormalities, Trop I x 2 negative. He has never had this symptoms in the past. Allergies No Known Allergies Allergy (Unverified 06/17/12 09:07) Home Medications: Losartan Potassium [Cozaar*] 1 tab PO DAILY 02/04/19 Pravastatin Sodium [Pravachol] 1 tab PO DAILY 02/04/19 - Past Medical/Surgical History Has patient received pneumonia vaccine in the past: No Diabetic: No -: obesity -: HTN -: dyslipidemia -: cholecystectomy -: intestinal surgery - Family History Family History: Reviewed- Non-Contributory - Family History Father -: Heart disease, Diabetes Mother -: Heart disease, Diabetes - Social History Smoking Status: Former smoker Alcohol use: No CD- Drugs: No Caffeine use: Yes Place of Residence: Home Review of Systems 10-point ROS is otherwise unremarkable Physical Examination - Vital Signs Temperature: 98.1 F Blood Pressure: 137/83 Pulse: 70 Respirations: 18 Pulse Ox (%): 92 - Physical Exam General: Alert, In no apparent distress HEENT: Atraumatic, PERRLA, Mucous membr. moist/pink, EOMI, Sclerae nonicteric Neck: Supple, 2+ carotid pulse no bruit, No LAD, Without JVD or thyroid abnormality Respiratory: Clear to auscultation bilaterally, Normal air movement Cardiovascular: Regular rate/rhythm, Normal S1 S2 Gastrointestinal: Normal bowel sounds, No tenderness Musculoskeletal: No tenderness Integumentary: No rashes Neurological: Normal gait, Normal speech, Normal strength at 5/5 x4 extr, Normal tone, Normal affect Lymphatics: No axilla or inguinal lymphadenopathy - Diagnosis (Problem(s)) (1) Chest pain Current Visit: Yes Status: Acute Qualifiers: Chest pain type: unspecified Qualified Code(s): R07.9 - Chest pain, unspecified (2) Dyslipidemia Current Visit: Yes Status: Chronic (3) HTN (hypertension) Current Visit: Yes Status: Chronic Qualifiers: Hypertension type: essential hypertension Qualified Code(s): I10 - Essential (primary) hypertension Treatment Summary: Overall during the hospital stay patient remained stable Patient was initially admitted to the hospital for chest pain. Troponin x2 were negative. EKG was with nonspecific changes. Cardiology was consulted. Who recommended echo and stress test here in the hospital. Patient had echo and stress test done here in the hospital both of which were within normal limits and this patient was discharged home under stable condition. Patient was asked to follow up with primary care provider in about 1-2 days post discharge. No new medications were prescribed. - Disposition Disposition: ROUTINE DISCHARGE Condition: GOOD Patient Discharge Instructions: Please followup with primary care provider along with cardiology in about 2-3 weeks post discharge. No new medication. Ear admitted to the hospital for chest pain. Had stress test and echocardiogram done here in the hospital which was both within normal limits. Chest pain is mostly secondary to muscle pain no new medications were prescribed to you during this visit to take home Diet: Regular Activity: Ad gallo
[2019-02-05 12:19] VITALS: TEMP 98.2
--- NOTE | 2019-02-05 13:33 | RAD REPORT ---
EXAM DESCRIPTION: CTA CHEST WITH CONTRAST 02/04/2019. CLINICAL HISTORY: Chest pain COMPARISON: None. TECHNIQUE: Axial [address] imaging of the thorax utilizing intravenous contrast. Reformatted coronal a nd sagittal images reviewed. Reconstructed oblique 2 mm images of the pulmonary vasculature also revi ewed. This exam was performed according to our departmental dose-optimization program which includes automa gordon exposure control, adjustment of the mA and/or kV according to patient size and/or use of iterativ e reconstruction technique FINDINGS: PULMONARY ARTERIES: Normal caliber main pulmonary artery. No filling defect within the ri ght atrium, right ventricle, central, or peripheral pulmonary vasculature. Complete peripheral vessel evaluation is suboptimal due to motion artifact. HEART/GREAT VESSELS: Upper normal cardiac size. No pericardial fluid. Normal caliber thoracic aorta. Normal branch pattern of the arch vessels. MEDIASTINUM/FINA: No filling defect within the central airways. Normal esophagus. There is a 4.1 cm ovoid cyst within the anterior mediastinum. LUNGS/PLEURA: Minimal right middle lobe and lingula atelectasis. No consolidation or edema. Pleural spaces are clear. Lung volumes are low. CHEST WALL/SOFT TISSUES: Unremarkable image thyroid. Intact bony thorax. UPPER ABDOMEN: Decreased liver attenuation due to fatty liver change. Normal included spleen. Small hiatal hernia. IMPRESSION: 1. No pulmonary embolism. 2. Small hiatal hernia. 3. Anterior mediastinal 4.1 cm cyst. This is nonspecific but could represent a pericardial or thymic cyst. 4. Fatty liver. Electronically signed by: Kylie Negrete DO 02/04/2019 1:33 AM CDT Due to temporary technical issues with the PACS/Fluency reporting system, reports are being signed by the in house radiologist as a courtesy to ensure prompt reporting. The interpreting radiologist is f ully responsible for the content of the report.
--- NOTE | 2019-02-05 15:32 | RAD REPORT ---
EXAM DESCRIPTION: NM - Rest Stress Cardiac Imaging - 02/05/2019 3:08 pm CLINICAL HISTORY: Chest pain. COMPARISON: None. TECHNIQUE: The patient was administered approximately 10mCi of Tc 99m Sestamibi prior to resting SPE CT imaging of the heart. The patient was then administered approximately 30 mCi of Tc 99m Sestamibi f ollowing exercise or pharmacologic stress. Multiplanar SPECT images were reviewed. FINDINGS: Moderate area of diminished radiotracer activity involves the left ventricular ejection f raction on rest and stress images. Left ventricular ejection fraction equals 48% IMPRESSION: Moderate apparent fixed perfusion defect involving the inferior left ventricle myocardiu m presumably representing an infarct. There is no evidence of stress-induced ischemia
[2019-02-05 16:18] VITALS: BP 181/82
--- NOTE | 2019-02-05 16:26 | ECHO ---
HEIGHT: 5 ft 11 in WEIGHT: 320 lb 0 oz DATE OF STUDY: 02/05/[address]: Isaak Purcell MD 2-DIMENSIONAL: YES M.MODE: YES DOPPLER: YES COLOR FLOW: YES TDS: YES PORTABLE: DEFINITY: BUBBLE STUDY: DIAGNOSIS: CHEST PAIN CARDIAC HISTORY: CATHERIZATION: NO SURGERY: NO PROSTHETIC VALVE: NO PACEMAKER: NO MEASUREMENTS (cm) DIASTOLIC (NORMALS) SYSTOLIC (NORMALS) IVSd 1.3 (0.6-1.2) LA Diam 4.2 (1.9-4.0) LVEF 51% LVIDd 4.0 (3.5-5.7) LVIDs 3.0 (2.0-3.5) %FS 25% LVPWd 1.3 (0.6-1.2) Ao Diam 2.8 (2.0-3.7) 2 DIMENSIONAL ASSESSMENT: RIGHT ATRIUM: NORMAL LEFT ATRIUM: DILATED RIGHT VENTRICLE: NORMAL LEFT VENTRICLE: LEFT VENTRICULAR HYPERTROPHY TRICUSPID VALVE: NORMAL MITRAL VALVE: NORMAL PULMONIC VALVE: NORMAL AORTIC VALVE: NORMAL PERICARDIAL EFFUSION: NONE AORTIC ROOT: NORMAL LEFT VENTRICULAR WALL MOTION: NORMAL DOPPLER/COLOR FLOW: TRACE MITRAL REGURGITATION. OTHERWISE NORMAL DOPPLER. COMMENTS: NORMAL LEFT VENTRICULAR EJECTION FRACTION. LEFT VENTRICULAR HYPERTROPHY. DILATED LEFT ATRIUM. TRACE MITRAL REGURGITATION. TECHNOLOGIST: CRISTIAN ORLANDO.
--- NOTE | 2019-02-05 16:46 | TREADPHA ---
DX: ATYPICAL CHEST PAIN Date of Study: 02/05/19 Ht: 5 11 Wt: 320 lb 0 oz Consulting Physician: CARMEN MEDICATIONS: ASPIRIN, LOVENOX, NITROSTAT. HISTORY: HYPERTENSION, HIGH CHOLESTEROL. PHYSICIAL EXAMINATION: RESTING B.P.: 164/104 RESTING H.R.: 63 RESTING EKG: NORMAL PROTOCOL: LEXISCAN EXERCISE TIME: 3:30 B.P. AT PEAK STRESS: 144/77 IMPRESSION: LEXISCAN STRESS TEST PREFORMED. CARDIOLITE INJECTED PER PROTOCOL. NO SUPRAVENTRICULAR TACHYCARDIA, OR VENTRICULAR TACHYCARDIA NOTED. NO ARRHYTHMIA. PATIENT DENIES CHEST PAIN. NON-DIAGNOSTIC ELECTROCARDIOGRAM WITH LEXISCAN STRESS.
== END 2019-02-05 19:07 | disposition home or self-care (01) ==
LOC: ER 23:18 → ERHOLD 02-04 05:13 → 4TH 02-04 05:59
PROVIDERS: ADMIT Internal Medicine; ATTEND Family Medicine
DX: R07.9 Chest pain, unspecified (principal); E78.5 Hyperlipidemia, unspecified; I10 Essential (primary) hypertension; I07.1 Rheumatic tricuspid insufficiency; K44.9 Diaphragmatic hernia without obstruction or gangrene; K76.0 Fatty (change of) liver, not elsewhere classified; E66.9 Obesity, unspecified; Z68.44 Body mass index [BMI] 60.0-69.9, adult; Z79.899 Other long term (current) drug therapy; Z87.891 Personal history of nicotine dependence
CPT/HCPCS: 36415; 71045; 71275; 78452; 80048; 80061; 80076; 81001; 83735; 83880; 84484; 85025; 85610; 87086; 87088; 93005; 93017; 93306; 99285; A9500; G0378; J1650; J2785; Q9967